=== PATIENT | female | born 1985 | race African-American/Black ===

== ENCOUNTER 2018-07-11 15:10 | Emergency (ER) | payer BC, OTHER ==
[~2018-07-11] VITALS: Ht 157.5 cm; Wt 68.9 kg
[2018-07-11 15:10] VITALS: BP 114/81
[2018-07-11] MEDS ORDERED: HYDROCODONE/APAP 10/325MG 1 EA TABLET ONE (16:08)
[2018-07-11] MEDS ORDERED: HYDROCODONE/APAP 10/325MG 1 EA TABLET PO ONE (16:30)
[2018-07-11] MEDS ORDERED: KETOROLAC TROMETHAMINE INJ 30 MG/ML VIAL ONE (18:00)
[2018-07-11] MEDS ORDERED: KETOROLAC TROMETHAMINE INJ 30 MG/ML VIAL IM ONE (18:00)
== END 2018-07-11 18:11 | disposition home or self-care (01) ==
LOC: ER 15:11
DX: S13.4XXA Sprain of ligaments of cervical spine, initial encounter (principal); S39.012A Strain of muscle, fascia and tendon of lower back, initial encounter; G89.29 Other chronic pain; F41.9 Anxiety disorder, unspecified; F32.9 Major depressive disorder, single episode, unspecified; Z98.890 Other specified postprocedural states; Z88.1 Allergy status to other antibiotic agents; V49.49XA Driver injured in collision with other motor vehicles in traffic accident, initial encounter; Y93.89 Activity, other specified; Y92.410 Unspecified street and highway as the place of occurrence of the external cause; Y99.8 Other external cause status
CPT/HCPCS: 72040-TC; 72100-TC; 72220-TC; J1885

== ENCOUNTER 2018-08-25 20:04 | Emergency (ER) | payer OTHER ==
[~2018-08-25] VITALS: Ht 160 cm; Wt 68.5 kg
--- NOTE | 2018-08-25 22:00 | NUR ---
Pt BIBSELF FROM HOME WITH MOM. Pt C/O RT LOWER EXT PAIN & SWELLING FOR PAST 2 WEEKS. WAS TOLD FROM URGENT CARE TO COME INTO ER TO GET ULTRA SOUND DONE ON LEG TO R/O DVT. ALREADY SEEN BY MD AT BEDSIDE. Pt IS A/OX4, VERBAL, ABLE TO MAKE NEEDS KNOWN. VS STABLE. WILL CONTINUE TO MONITOR Pt.
[2018-08-25] MEDS ORDERED: TRAMADOL HCL 50 MG TABLET ONE (22:26)
[2018-08-25] MEDS ORDERED: TRAMADOL HCL 50 MG TABLET PO ONE (22:30)
[2018-08-25] MEDS ORDERED: CYCLOBENZAPRINE 10 MG TABLET ONE (23:15)
--- NOTE | 2018-08-25 23:15 | NUR ---
ALL ORDERED MEDS GIVEN.
[2018-08-25] MEDS ORDERED: CYCLOBENZAPRINE 10 MG TABLET PO ONE (23:30)
--- NOTE | 2018-08-25 23:38 | NUR ---
Patient discharged to home in stable condition. Written and verbal after care instructions given. Patient verbalizes understanding of instruction. Patient left faciltiy on foot with steady gait, mother at side who will take pt back home. No s/s of acute distress or sob noted. vs stable. NO IV access. ID band removed.
[2018-08-25 23:41] VITALS: BP 124/82
== END 2018-08-25 23:41 | disposition home or self-care (01) ==
LOC: ER 20:05
DX: M79.604 Pain in right leg (principal); M54.41 Lumbago with sciatica, right side; F41.9 Anxiety disorder, unspecified; F32.9 Major depressive disorder, single episode, unspecified; Z98.890 Other specified postprocedural states; Z88.1 Allergy status to other antibiotic agents
CPT/HCPCS: 93971-TC